=== PATIENT | female | born 1955 | race African-American/Black ===

== ENCOUNTER → 2016-08-02 | Outpatient (CLI) | payer BC ==
[2014-09-26 11:30] VITALS: BP 146/83
--- NOTE | 2016-08-02 09:23 | RAD ---
DATE: 08/02/2016 EXAM: DIGITAL SCREEN BILAT W/CAD HISTORY: Screening study. COMPARISON: 02/24/2014 This study was interpreted with the benefit of Computerized Aided Detection (CAD). FINDINGS: Digital MLO and CC mammograms of both breasts were obtained. An additional exaggerated craniocaudal digital mammogram of the left breast was obtained. Comparison study is dated 02/24/2014. The breast parenchyma is heterogeneously dense which can obscure a lesion on mammography (breast density code C). No spiculated mass is seen. Benign-appearing calcifications are seen scattered throughout both breasts. Within the upper outer quadrant of the left breast a group of calcifications is seen which appears increased in size and number since the previous examination. Further evaluation with spot compression magnification CC and true lateral views is recommended. IMPRESSION: A group of calcifications is seen within the upper quadrant left breast which appears increased since the previous examination. Further evaluation with spot compression magnification CC and true lateral views is recommended. BI-RADS CATEGORY: 0 INCOMPLETE: NEEDS ADDITIONAL IMAGING EVALUATION AND/OR PRIOR MAMMOGRAMS FOR COMPARISON. RECOMMENDED FOLLOW-UP: ADD ADDITIONAL IMAGING Mammography is a sensitive method for finding small breast cancers, but it does not detect them all and is not a substitute for careful clinical examination. A negative mammogram does not negate a clinically suspicious finding and should not result in delay in biopsying a clinically suspicious abnormality. "Our facility is accredited by the [employer] Mammography Program."
== END | disposition home or self-care (01) ==
LOC: MAMMO 08:16
PROVIDERS: ATTEND Family Medicine
DX: Z12.31 Encounter for screening mammogram for malignant neoplasm of breast (principal)
CPT/HCPCS: G0202; 77067

== ENCOUNTER → 2016-08-08 | Outpatient (CLI) | payer BC ==
[2014-09-26 11:30] VITALS: BP 146/83
[~2016-08-08] MED LIST: AMLO1CAP10 PO; CLON0.2T PO; HYDR12.53 PO; NAPR220T70 PO
--- NOTE | 2016-08-08 14:06 | RAD ---
DATE: 08/08/2016 EXAM: DIGITAL DIAGNOSTIC LT HISTORY: Microcalcifications, back COMPARISON: 08/02/2016 This study was interpreted with the benefit of Computerized Aided Detection (CAD ). FINDINGS: Breast Density: HETERO The breast parenchyma Is heterogeneously dense, which could reduce sensitivity of mammography. Breast parenchyma level C. Multiple amorphous grouped microcalcifications identified in the left upper outer quadrant. IMPRESSION: Suspicious microcalcifications in the left upper outer quadrant. Recommend stereotactic biopsy. BI-RADS CATEGORY: 4 SUSPICIOUS ABNORMALITY-BIOPSY SHOULD BE CONSIDERED RECOMMENDED FOLLOW-UP: Stereotactic guided biopsy PQRS compliance statement: Patient information was entered into a reminder system with a target due date immediate recall for the next mammogram. Mammography is a sensitive method for finding small breast cancers, but it does not detect them all and is not a substitute for careful clinical examination. A negative mammogram does not negate a clinically suspicious finding and should not result in delay in biopsying a clinically suspicious abnormality. MTDD
== END | disposition home or self-care (01) ==
LOC: MAMMO 12:07
PROVIDERS: ATTEND Family Medicine
DX: R92.8 Other abnormal and inconclusive findings on diagnostic imaging of breast (principal)
CPT/HCPCS: G0206; 77065

== ENCOUNTER → 2016-08-09 | Outpatient (CLI) | payer BC ==
[~2016-08-09] VITALS: Ht 162.6 cm; Wt 69.9 kg
[~2016-08-09] MED LIST changes: +LIDOCAINE 1% / SOD BICARB 8.4% 20 ML VIAL. IJ ONE; +LIDOCAINE 2%/EPI 1:100,000 20 ML VIAL. IJ ONE
[2016-08-09 07:51] VITALS: BP 109/66
--- NOTE | 2016-08-10 14:53 | PATHOLOGY ---
PATHOLOGY REPORT * * * * * * * * FINAL DIAGNOSIS: Breast "left breast biopsy": - LOBULAR CARCINOMA IN SITU THE LARGEST AREA MEASURING 0.2 CM IN GREATEST DIMENSION. - Fibrocystic changes with numerous microcalcifications. - See comment. COMMENT: This is case is also reviewed by Dr. Fernando Beck. REPORT ELECTRONICALLY SIGNED BY: Arturo Bobo M.D. DATE/TIME: 08/10/2016 14:51 * * * * * * * * GROSS PATHOLOGY: Received in formalin labeled "Faith Ferreira, left breast," entirely within a plastic cassette containing multiple cores are multiple fragments of yellow-navarro fibrofatty tissue measuring 3.2 x 3.0 x 0.8 cm in aggregate dimensions. The tissue in the cassette is transferred to cassettes A1 through A3. The cold ischemic time is 38 minutes and total formalin fixation time is 14 hours and 36 minutes. (SHA; 08/09/16) INITIAL CPT CODE(S): A; 04707 Professional services performed [place] [address] Technical services performed by [facility] at [address] [place] [address] [address] [address]. SPECIMEN(S) RECEIVED: A.Left breast biopsy CLINICAL HISTORY: Calcifications PATIENT: FAITH FERREIRA /AGE: 1201/24/1955 (Age: 61) PATIENT #: [id number] ALT CASE #: SPECIMEN COLLECTION DATE: 08/09/2016 SPECIMEN RECEIVED DATE: 08/09/2016 [facility] - [address] [place] [address] - PHONE: [phone] * * * END OF REPORT * * *
--- NOTE | 2016-08-11 14:49 | RAD ---
Stereotactic left breast biopsy, 08/09/2016: History: Microcalcifications The previous studies demonstrated multiple faint microcalcifications in the left breast, most numerous in the upper outer quadrant. These are spread out over a fairly wide area. They were thought to be progressing. Under local anesthesia, aseptic conditions and stereotactic guidance the [employer] biopsy instrument was passed into this region via a superior approach. Multiple 19-gauge vacuum-assisted core samples were obtained. Several microcalcifications are present in the specimens. A biopsy marker was then deposited at the biopsy site. The biopsy instrument was then removed and hemostasis was obtained. Two-view postprocedural digital mammograms were then obtained on a separate mammographic unit. They show that the biopsy marker has migrated several centimeters superiorly. The patient tolerated the procedure well and left the department in good condition. Note: The subsequent pathology report indicated the presence of fibrocystic change with microcalcifications, as well as lobular carcinoma in situ. Excisional biopsy following needle localization is suggested for further evaluation. Surgical consultation is suggested. Note: The report was called to personnel in Dr. Lehman's office at 2:40 PM on 08/11/2016. They will relay this report to Dr. Lehman.
== END ==
LOC: MAMMO 08:00
PROVIDERS: ATTEND Family Medicine
DX: R92.8 Other abnormal and inconclusive findings on diagnostic imaging of breast (principal)
CPT/HCPCS: 19085; 77022; C1713; G0206; J3490; 88305; 77065

== ENCOUNTER 2016-08-30 07:31 | Day surgery (SDC) | payer BC ==
[~2016-08-30 07:31] MED LIST changes: +GLUC1TAB45 PO; +HYDROmorphone 2 MG/ML VIAL IV PRN; +IV RINGERS,LACTATED 1000ML 1,000 ML IV SCH; -LIDOCAINE 1% / SOD BICARB 8.4% 20 ML VIAL. IJ ONE; +LIDOCAINE 1% 1 ML SYRINGE. ID PRN; -LIDOCAINE 2%/EPI 1:100,000 20 ML VIAL. IJ ONE; +MORPHINE SULFATE 2 MG/ML DISP.SYRIN. IV PRN; +ONDANSETRON PF 4 MG/2 ML VIAL. IV PRN; +PROCHLORPERAZINE 10 MG/2 ML VIAL. IV PRN; +fentaNYL PF VIAL 100 MCG/2 ML VIAL IV PRN
[2016-08-30] MEDS ORDERED: LIDOCAINE 1% / SOD BICARB 8.4% 20 ML VIAL. IJ ONE (08:15)
[2016-08-30] MEDS ORDERED: METHYLENE BLUE 1% 1 ML VIAL. IJ ONE (08:15)
[2016-08-30 08:35] LABS: BASO # 0.1 x10^3/uL (0.0-0.2); BASO % 1 % (0-3); EOS % 2 % (0-3); HEMATOCRIT 37.6 % (36.0-47.0); HEMOGLOBIN 12.6 g/dL (12.0-15.5); LYMPH % 21 % (24-48); MEAN CORPUSCULAR HEMOGLOBIN 28 pg (25-35); MEAN CORPUSCULAR HGB CONC 34 g/dL (31-37); MEAN CORPUSCULAR VOLUME 84 fL (79-100); MONO % 5 % (0-9); NEUT % 71 % (31-73); PLATELET COUNT 168 x10^3/uL (140-400); RED CELL DISTRIBUTION WIDTH 15.1 % (11.5-14.5); WHITE BLOOD COUNT 9.4 x10^3/uL (4.0-11.0)
[2016-08-30 08:43] LABS: CALCIUM 9.3 mg/dL (8.5-10.1); CREATININE 1.4 mg/dL (0.6-1.0); GFR 46.1; POTASSIUM 4.1 mmol/L (3.5-5.1)
[2016-08-30 08:49] LABS: ALBUMIN 3.8 g/dL (3.4-5.0); ALBUMIN/GLOBULIN RATIO 0.8 (1.0-1.7); TOTAL BILIRUBIN 0.3 mg/dL (0.2-1.0); TOTAL PROTEIN 8.8 g/dL (6.4-8.2)
[2016-08-30 08:55] LABS: INR 1.1 (0.8-1.1); PROTHROMBIN TIME PATIENT 13.1 SEC (11.7-14.0)
[2016-08-30] MEDS ORDERED: DESFLURANE 61 TO 120 MINUTES IH ONE (08:57)
[2016-08-30] MEDS ORDERED: ONDANSETRON PF 4 MG/2 ML VIAL. ONE (08:58)
[2016-08-30] MEDS ORDERED: PROPOFOL 20 ML IV ONE (08:58)
[2016-08-30] MEDS ORDERED: MIDAZOLAM HCL/PF 2 MG/2 ML VIAL. ONE (08:58)
[2016-08-30] MEDS ORDERED: DEXAMETHASONE SOD PHOS 20 MG/5 ML VIAL. ONE (08:58)
[2016-08-30] MEDS ORDERED: LIDOCAINE 2% PF Vial for OR 5 ML VIAL. ONE (08:58)
[2016-08-30] MEDS ORDERED: fentaNYL PF VIAL 100 MCG/2 ML VIAL ONE ×2 (08:58→11:47)
--- NOTE | 2016-08-30 09:58 | RAD ---
Left breast needle localization, 08/30/2016: History: Microcalcifications, lobular carcinoma in situ Previous studies have demonstrated widespread microcalcifications in the left breast, most prominent in the upper outer quadrant. A recent breast biopsy in this region demonstrated lobular carcinoma in situ. The biopsy marker from that biopsy was noted to have migrated superiorly from the biopsy site at the end of that procedure. Under local anesthesia, aseptic conditions and mammographic guidance we targeted the dominant microcalcifications. These were bracketed with 2 modified Kopans retention wires with the final images showing that the grouping of microcalcifications is centered approximate 7 cm deep to the skin surface. We also injected a small amount methylene blue at the level of the tips of these two retention wire as as requested by Dr. Christiansen. We also targeted the previous biopsy clip with a third wire. This is the more medially placed wire. Methylene blue was also injected at the tip of this wire as requested. The final images show that the biopsy marker lies directly adjacent to the distal aspect of this retention wire, approximately 2.5 cm deep to the skin surface. The patient tolerated the procedure well and left the department in good condition.
[2016-08-30] MEDS ORDERED: CLINDAMYCIN 600MG PREMIX 50 ML IV ONE (10:49)
--- NOTE | 2016-08-30 10:52 | PDOC ---
SURGICAL PROGRESS NOTE Subjective No change in dictated H&P. Vital Signs Vital Signs Date Time Temp Pulse Resp B/P (MAP) Pulse Ox O2 Delivery O2 Flow Rate FiO2 08/30/16 08:43 97.4 61 16 118/69 98 Room Air 97.4 Labs Laboratory Tests Test 08/30/16 08:10 White Blood Count 9.4 x10^3/uL (4.0-11.0) Red Blood Count 4.50 x10^6/uL (3.50-5.40) Hemoglobin 12.6 g/dL (12.0-15.5) Hematocrit 37.6 % (36.0-47.0) Mean Corpuscular Volume 84 fL (79-100) Mean Corpuscular Hemoglobin 28 pg (25-35) Mean Corpuscular Hemoglobin Concent 34 g/dL (31-37) Red Cell Distribution Width 15.1 % (11.5-14.5) Platelet Count 168 x10^3/uL (140-400) Neutrophils (%) (Auto) 71 % (31-73) Lymphocytes (%) (Auto) 21 % (24-48) Monocytes (%) (Auto) 5 % (0-9) Eosinophils (%) (Auto) 2 % (0-3) Basophils (%) (Auto) 1 % (0-3) Neutrophils # (Auto) 6.6 x10^3uL (1.8-7.7) Lymphocytes # (Auto) 2.0 x10^3/uL (1.0-4.8) Monocytes # (Auto) 0.5 x10^3/uL (0.0-1.1) Eosinophils # (Auto) 0.2 x10^3/uL (0.0-0.7) Basophils # (Auto) 0.1 x10^3/uL (0.0-0.2) Prothrombin Time 13.1 SEC (11.7-14.0) Prothromb Time International Ratio 1.1 (0.8-1.1) Sodium Level 140 mmol/L (136-145) Potassium Level 4.1 mmol/L (3.5-5.1) Chloride Level 102 mmol/L (98-107) Carbon Dioxide Level 30 mmol/L (21-32) Anion Gap 8 (6-14) Blood Urea Nitrogen 18 mg/dL (7-20) Creatinine 1.4 mg/dL (0.6-1.0) Estimated GFR (Cockcroft-Gault) 46.1 BUN/Creatinine Ratio 13 (6-20) Glucose Level 196 mg/dL (70-99) Calcium Level 9.3 mg/dL (8.5-10.1) Total Bilirubin 0.3 mg/dL (0.2-1.0) Aspartate Amino Transf (AST/SGOT) 16 U/L (15-37) Alanine Aminotransferase (ALT/SGPT) 17 U/L (14-59) Alkaline Phosphatase 93 U/L (46-116) Total Protein 8.8 g/dL (6.4-8.2) Albumin 3.8 g/dL (3.4-5.0) Albumin/Globulin Ratio 0.8 (1.0-1.7) Laboratory Tests Test 08/30/16 08:10 White Blood Count 9.4 x10^3/uL (4.0-11.0) Red Blood Count 4.50 x10^6/uL (3.50-5.40) Hemoglobin 12.6 g/dL (12.0-15.5) Hematocrit 37.6 % (36.0-47.0) Mean Corpuscular Volume 84 fL (79-100) Mean Corpuscular Hemoglobin 28 pg (25-35) Mean Corpuscular Hemoglobin Concent 34 g/dL (31-37) Red Cell Distribution Width 15.1 % (11.5-14.5) Platelet Count 168 x10^3/uL (140-400) Neutrophils (%) (Auto) 71 % (31-73) Lymphocytes (%) (Auto) 21 % (24-48) Monocytes (%) (Auto) 5 % (0-9) Eosinophils (%) (Auto) 2 % (0-3) Basophils (%) (Auto) 1 % (0-3) Neutrophils # (Auto) 6.6 x10^3uL (1.8-7.7) Lymphocytes # (Auto) 2.0 x10^3/uL (1.0-4.8) Monocytes # (Auto) 0.5 x10^3/uL (0.0-1.1) Eosinophils # (Auto) 0.2 x10^3/uL (0.0-0.7) Basophils # (Auto) 0.1 x10^3/uL (0.0-0.2) Prothrombin Time 13.1 SEC (11.7-14.0) Prothromb Time International Ratio 1.1 (0.8-1.1) Sodium Level 140 mmol/L (136-145) Potassium Level 4.1 mmol/L (3.5-5.1) Chloride Level 102 mmol/L (98-107) Carbon Dioxide Level 30 mmol/L (21-32) Anion Gap 8 (6-14) Blood Urea Nitrogen 18 mg/dL (7-20) Creatinine 1.4 mg/dL (0.6-1.0) Estimated GFR (Cockcroft-Gault) 46.1 BUN/Creatinine Ratio 13 (6-20) Glucose Level 196 mg/dL (70-99) Calcium Level 9.3 mg/dL (8.5-10.1) Total Bilirubin 0.3 mg/dL (0.2-1.0) Aspartate Amino Transf (AST/SGOT) 16 U/L (15-37) Alanine Aminotransferase (ALT/SGPT) 17 U/L (14-59) Alkaline Phosphatase 93 U/L (46-116) Total Protein 8.8 g/dL (6.4-8.2) Albumin 3.8 g/dL (3.4-5.0) Albumin/Globulin Ratio 0.8 (1.0-1.7) KEON CADENA MD Aug 30, 2016 10:52
--- NOTE | 2016-08-30 10:55 | PDOC ---
SURGICAL PROGRESS NOTE Subjective Op Note: Surgeon..........................................Kuldip Pre op diag.....................................Lobular carcinoma insitu. Post op diag...................................same Anesthesia.....................................general Procedure......................................partial mastectomy Drains...........................................large Matthieu drain Fluids............................................see anesthesia sheet Blood loss.....................................15cc Condition.......................................satisfactory Vital Signs Vital Signs Date Time Temp Pulse Resp B/P (MAP) Pulse Ox O2 Delivery O2 Flow Rate FiO2 08/30/16 08:43 97.4 61 16 118/69 98 Room Air 97.4 Labs Laboratory Tests Test 08/30/16 08:10 White Blood Count 9.4 x10^3/uL (4.0-11.0) Red Blood Count 4.50 x10^6/uL (3.50-5.40) Hemoglobin 12.6 g/dL (12.0-15.5) Hematocrit 37.6 % (36.0-47.0) Mean Corpuscular Volume 84 fL (79-100) Mean Corpuscular Hemoglobin 28 pg (25-35) Mean Corpuscular Hemoglobin Concent 34 g/dL (31-37) Red Cell Distribution Width 15.1 % (11.5-14.5) Platelet Count 168 x10^3/uL (140-400) Neutrophils (%) (Auto) 71 % (31-73) Lymphocytes (%) (Auto) 21 % (24-48) Monocytes (%) (Auto) 5 % (0-9) Eosinophils (%) (Auto) 2 % (0-3) Basophils (%) (Auto) 1 % (0-3) Neutrophils # (Auto) 6.6 x10^3uL (1.8-7.7) Lymphocytes # (Auto) 2.0 x10^3/uL (1.0-4.8) Monocytes # (Auto) 0.5 x10^3/uL (0.0-1.1) Eosinophils # (Auto) 0.2 x10^3/uL (0.0-0.7) Basophils # (Auto) 0.1 x10^3/uL (0.0-0.2) Prothrombin Time 13.1 SEC (11.7-14.0) Prothromb Time International Ratio 1.1 (0.8-1.1) Sodium Level 140 mmol/L (136-145) Potassium Level 4.1 mmol/L (3.5-5.1) Chloride Level 102 mmol/L (98-107) Carbon Dioxide Level 30 mmol/L (21-32) Anion Gap 8 (6-14) Blood Urea Nitrogen 18 mg/dL (7-20) Creatinine 1.4 mg/dL (0.6-1.0) Estimated GFR (Cockcroft-Gault) 46.1 BUN/Creatinine Ratio 13 (6-20) Glucose Level 196 mg/dL (70-99) Calcium Level 9.3 mg/dL (8.5-10.1) Total Bilirubin 0.3 mg/dL (0.2-1.0) Aspartate Amino Transf (AST/SGOT) 16 U/L (15-37) Alanine Aminotransferase (ALT/SGPT) 17 U/L (14-59) Alkaline Phosphatase 93 U/L (46-116) Total Protein 8.8 g/dL (6.4-8.2) Albumin 3.8 g/dL (3.4-5.0) Albumin/Globulin Ratio 0.8 (1.0-1.7) Laboratory Tests Test 08/30/16 08:10 White Blood Count 9.4 x10^3/uL (4.0-11.0) Red Blood Count 4.50 x10^6/uL (3.50-5.40) Hemoglobin 12.6 g/dL (12.0-15.5) Hematocrit 37.6 % (36.0-47.0) Mean Corpuscular Volume 84 fL (79-100) Mean Corpuscular Hemoglobin 28 pg (25-35) Mean Corpuscular Hemoglobin Concent 34 g/dL (31-37) Red Cell Distribution Width 15.1 % (11.5-14.5) Platelet Count 168 x10^3/uL (140-400) Neutrophils (%) (Auto) 71 % (31-73) Lymphocytes (%) (Auto) 21 % (24-48) Monocytes (%) (Auto) 5 % (0-9) Eosinophils (%) (Auto) 2 % (0-3) Basophils (%) (Auto) 1 % (0-3) Neutrophils # (Auto) 6.6 x10^3uL (1.8-7.7) Lymphocytes # (Auto) 2.0 x10^3/uL (1.0-4.8) Monocytes # (Auto) 0.5 x10^3/uL (0.0-1.1) Eosinophils # (Auto) 0.2 x10^3/uL (0.0-0.7) Basophils # (Auto) 0.1 x10^3/uL (0.0-0.2) Prothrombin Time 13.1 SEC (11.7-14.0) Prothromb Time International Ratio 1.1 (0.8-1.1) Sodium Level 140 mmol/L (136-145) Potassium Level 4.1 mmol/L (3.5-5.1) Chloride Level 102 mmol/L (98-107) Carbon Dioxide Level 30 mmol/L (21-32) Anion Gap 8 (6-14) Blood Urea Nitrogen 18 mg/dL (7-20) Creatinine 1.4 mg/dL (0.6-1.0) Estimated GFR (Cockcroft-Gault) 46.1 BUN/Creatinine Ratio 13 (6-20) Glucose Level 196 mg/dL (70-99) Calcium Level 9.3 mg/dL (8.5-10.1) Total Bilirubin 0.3 mg/dL (0.2-1.0) Aspartate Amino Transf (AST/SGOT) 16 U/L (15-37) Alanine Aminotransferase (ALT/SGPT) 17 U/L (14-59) Alkaline Phosphatase 93 U/L (46-116) Total Protein 8.8 g/dL (6.4-8.2) Albumin 3.8 g/dL (3.4-5.0) Albumin/Globulin Ratio 0.8 (1.0-1.7) KEON CADENA MD Aug 30, 2016 10:55
[2016-08-30] MEDS ORDERED: PHENYLEPHRINE in 0.9% NACL PF 1 MG/10 ML DISP.SYRIN. IV ONE (11:07)
[2016-08-30] MEDS ORDERED: PHENYLEPHRINE 10 MG/ML VIAL. ONE (11:09)
[2016-08-30] MEDS ORDERED: ePHEDrine PF IN SALINE 50 MG/5 ML DISP.SYRIN IV ONE ×2 (11:33→12:10)
--- NOTE | 2016-08-30 12:02 | RAD ---
Left breast specimen mammogram #1, 08/30/2016: History: Breast cancer A digital mammogram of a surgical specimen from the left breast was obtained. There is a modified Kopan's retention wire in the specimen as well as the targeted biopsy marker. The marker lies at the D6-7 level in the specimen container. There are faint microcalcifications related to dense breast tissue at the I5 level in the specimen container.
--- NOTE | 2016-08-30 12:34 | RAD ---
Left breast specimen mammogram #2, 08/30/2016: A single digital mammogram of a second surgical specimen from the patient's left breast was performed. It demonstrates 2 modified Kopans retention wires within the specimen. There are numerous microcalcifications within the specimen including a prominent grouping extending to the margin of the specimen near the L13-14 level in the specimen container.
[2016-08-30] MEDS ORDERED: HYDR-2758 PO (13:14)
[2016-08-30] MEDS ORDERED: HYDROcodone/APAP 5/325MG 1 TAB TABLET PO ONE (13:15)
[2016-08-30 13:45] VITALS: BP 119/70
--- NOTE | 2016-09-04 08:11 | PATHOLOGY ---
PATHOLOGY REPORT * * * * * * * * FINAL DIAGNOSIS: A. Breast, "left breast," previous biopsy site, segmental resection: - RESIDUAL FOCUS OF LOBULAR CARCINOMA IN SITU, MULTIFOCAL MEASURING 0.2 CM IN GREATEST DIMENSION, 0.2 CM FROM THE INKED SURGICAL RESECTION MARGIN. - Previous biopsy site changes, microcalcifications, and fibrocystic changes. B. Breast, "left breast tissue microcalcifications": - MULTIFOCAL LOBULAR CARCINOMA IN SITU, THE LARGEST AREA MEASURES 0.2 CM IN GREATEST DIMENSION COMPLETELY EXCISED. - ONE FOCUS IS 0.1 CM FROM THE BLACK-INKED SURGICAL RESECTION MARGIN. - Fibrocystic changes with microcalcifications. - See comment. COMMENT: Immunoperoxidase stains were performed and reveal the following results: E-cadherin (A3): negative in LCIS focus E-cadherin (A4): negative in LCIS focus E-cadherin (B4): negative in LCIS focus E-cadherin (B5): negative in LCIS focus (SHA:r; 09/01/2016) REPORT ELECTRONICALLY SIGNED BY: Arturo Bobo M.D. DATE/TIME: 09/04/2016 08:10 * * * * * * * * GROSS PATHOLOGY: A. The specimen is received in formalin labeled "Wilbert Jhon, previous biopsy site L breast". Received is a 12 g unoriented segment of bright yellow lobulated tissue measuring 6.3 x 3.1 x 1.1 cm in greatest dimensions with a localization wire present. The surgical margin is inked. Sectioning reveals a small focus of white-deluna fibrous tissue, with a metallic clip present, measuring 0.5 x 0.5 x 0.4 cm in greatest dimensions, which grossly approaches the inked margin. The remainder the specimen is comprised of yellow-deluna, lobulated to white-deluna, fibrous cut surfaces throughout, with the fibrous tissue encompassing approximately 25% of the specimen. The specimen is submitted representatively as follows: A1 margins from longest axis A2 entire focus fibrous tissue are metallic clip was located A3-A6 additional patient services representative sections of specimen. The cold ischemic time is 17 minutes. The total formalin fixation time is 34 hours and 3 minutes. B. The specimen is received in formalin labeled "Wilbert Jhon, L breast tissue". Received is a 28 g segment of bright yellow lobulated tissue measuring 8.3 x 5.8 x 1.0 cm in greatest dimensions with 2 localization wires present. The surgical margin is inked. Sectioning reveals yellow-deluna, lobulated to white-deluna, fibrous cut surfaces throughout with no grossly distinct previous biopsy sites. Each wire ended in a patch of white-deluna fibrous tissue, which has a slight amount of blue dye. No distinct nodules or lesions are noted grossly. The fibrous tissue encompasses approximately 30% of the specimen. The specimen is submitted representatively as follows: B1 margins from longest axis B2 each focus where the ends of each wire were located B3-B6 additional patient services representative sections of specimen. The cold ischemic time is 30 minutes. The total followed fixation time is 33 hours and 40 minutes. (CAA; 08/31/2016) INITIAL CPT CODE(S): A; 44455, 89832 B; 11394, 19725 Professional services performed [place] [facility] [place] [address] Technical services performed by [facility] at [address] [place] [address] [address], [place] [address]. SPECIMEN(S) RECEIVED: A.Previous biopsy site, left breast B.Left breast tissue microscopic calcifications CLINICAL HISTORY: None provided PATIENT: IWLBERT LEIJA /AGE: 1201/24/1955 (Age: 61) PATIENT #: [id number] ALT CASE #: SPECIMEN COLLECTION DATE: 08/30/2016 SPECIMEN RECEIVED DATE: 08/30/2016 [facility] - [address] [place] [address] - PHONE: [phone] * * * END OF REPORT * * *
== END 2016-08-30 14:09 | disposition home or self-care (01) ==
LOC: MAMMO 07:31
PROVIDERS: ATTEND Specialist
DX: C50.912 Malignant neoplasm of unspecified site of left female breast (principal); R92.0 Mammographic microcalcification found on diagnostic imaging of breast; E78.00 Pure hypercholesterolemia, unspecified; I10 Essential (primary) hypertension; M19.90 Unspecified osteoarthritis, unspecified site; Z79.01 Long term (current) use of anticoagulants; Z88.0 Allergy status to penicillin; Z87.39 Personal history of other diseases of the musculoskeletal system and connective tissue; Z72.89 Other problems related to lifestyle
CPT/HCPCS: 19281; 19301; 36415; 76098; 80053; 85027; 85610; J1100; J2001; J2250; J2370; J2405; J2704; J3010; J3490; J7120; Q9968

== ENCOUNTER → 2017-09-03 | Outpatient (CLI) | payer BC | END | disposition home or self-care (01) | LOC: MAMMO 10:54 | DX: R92.8 Other abnormal and inconclusive findings on diagnostic imaging of breast (principal); I10 Essential (primary) hypertension; E78.00 Pure hypercholesterolemia, unspecified | CPT/HCPCS: 77066; G0279 ==

== ENCOUNTER → 2018-02-05 | Outpatient (CLI) | payer BC ==
[~2018-02-05] MED LIST changes: +HYDR-2761 PO; -HYDR12.53 PO; +HYDR12.575 PO; -HYDROmorphone 2 MG/ML VIAL IV PRN; -IV RINGERS,LACTATED 1000ML 1,000 ML IV SCH; -LIDOCAINE 1% 1 ML SYRINGE. ID PRN; -MORPHINE SULFATE 2 MG/ML DISP.SYRIN. IV PRN; -ONDANSETRON PF 4 MG/2 ML VIAL. IV PRN; -PROCHLORPERAZINE 10 MG/2 ML VIAL. IV PRN; -fentaNYL PF VIAL 100 MCG/2 ML VIAL IV PRN
--- NOTE | 2018-02-08 09:18 | RAD ---
DATE: 02/05/2018 3:30 PM EXAM: MAMMO KARINA DIAG LT HISTORY: short-term imaging followup of a probably benign finding in the left breast. COMPARISON: 09/03/2017, Left CC and MLO views of the breasts were performed. Left breast tomosynthesis was performed in CC and MLO projections. This study was interpreted with the benefit of Computerized Aided Detection (CAD ). Breast Density: The breast parenchyma is heterogeneously dense, which could reduce sensitivity of mammography. Breast parenchyma level C. FINDINGS: Posttherapeutic changes of prior lumpectomy are again seen. The previously seen left breast calcifications are grossly stable in appearance. Given history of known lobular carcinoma in situ, continued follow-up is suggested despite stable appearance. IMPRESSION: Left breast indeterminate microcalcifications, findings for which short interval follow-up imaging is advised. BI-RADS CATEGORY: 3 PROBABLY BENIGN FINDING(S)-SHORT INTERVAL FOLLOW-UP SUGGESTED RECOMMENDED FOLLOW-UP: 6M 6 MONTH FOLLOW-UP follow-up mammography is recommended in 6 months at which time the patient is due for contralateral screening examination as well. At this time full field ML and magnification views of the left breast are recommended as well as 3-D CC and MLO views. PQRS compliance statement: Patient information was entered into a reminder system with a target due date August 04, 2017 for the next mammogram. Mammography is a sensitive method for finding small breast cancers, but it does not detect them all and is not a substitute for careful clinical examination. A negative mammogram does not negate a clinically suspicious finding and should not result in delay in biopsying a clinically suspicious abnormality. "Our facility is accredited by the [employer] Mammography Program." MTDD
== END | disposition home or self-care (01) ==
LOC: MAMMO 13:13
PROVIDERS: ATTEND Nurse Practitioner Adult Health
DX: D05.02 Lobular carcinoma in situ of left breast (principal)
CPT/HCPCS: 77065; G0279; 77061

== ENCOUNTER → 2018-07-29 | Outpatient (CLI) | payer BC, MEDICARE ==
--- NOTE | 2018-07-29 11:35 | RAD ---
DATE: 07/29/2018 EXAM: MAMMO KARINA DIAG BILAT HISTORY: Routine screening on right, six-month follow-up on left COMPARISON: 02/05/2018, 09/03/2017 This study was interpreted with the benefit of Computerized Aided Detection (CAD). Breast Density: HETERO The breast parenchyma is heterogenously dense, which could reduce sensitivity of mammography. Breast parenchyma level C. FINDINGS: 2-D and 3-D tomosynthesis imaging was performed in CC and MLO projections. No new or enlarging breast densities are seen. Faint left breast microcalcifications are unchanged. There is a coarse benign type calcification anteriorly in the right breast. Lymph node type densities projected over the axillary regions are unchanged. IMPRESSION: Stable left breast microcalcifications. Follow-up left mammography in 6 months and bilateral mammography at one year is suggested. BI-RADS CATEGORY: 3 PROBABLY BENIGN FINDING(S)-SHORT INTERVAL FOLLOW-UP SUGGESTED RECOMMENDED FOLLOW-UP: 6M 6 MONTH FOLLOW-UP PQRS compliance statement: Patient information was entered into a reminder system with a target due date for the next mammogram. Mammography is a sensitive method for finding small breast cancers, but it does not detect them all and is not a substitute for careful clinical examination. A negative mammogram does not negate a clinically suspicious finding and should not result in delay in biopsying a clinically suspicious abnormality. "Our facility is accredited by the [employer] Mammography Program."
== END | disposition home or self-care (01) ==
LOC: MAMMO 10:07
PROVIDERS: ATTEND Internal Medicine Hematology & Oncology
DX: R92.1 Mammographic calcification found on diagnostic imaging of breast (principal); R92.0 Mammographic microcalcification found on diagnostic imaging of breast; D05.02 Lobular carcinoma in situ of left breast
CPT/HCPCS: 77066; G0279; 77062

== ENCOUNTER → 2019-01-28 | Outpatient (CLI) | payer MEDICARE, BC ==
[~2019-01-28] MED LIST changes: -AMLO1CAP10 PO; +AMLO1CAP11 PO
--- NOTE | 2019-01-29 15:35 | RAD ---
DATE: 01/28/2019 EXAM: MAMMO KARINA KHLOE AVALOS HISTORY: Abnormal mammogram COMPARISON: 11/15/2012 08/02/2016 09/03/2017, 07/29/2018 mammographic exams This study was interpreted with the benefit of Computerized Aided Detection (CAD). Breast Density: HETERO The breast parenchyma is heterogenously dense, which could reduce sensitivity of mammography. Breast parenchyma level C. FINDINGS: Calcifications involving the left upper-outer breast are stable. No suspicious change. IMPRESSION: Stable calcifications BI-RADS CATEGORY: 3 PROBABLY BENIGN FINDING(S)-SHORT INTERVAL FOLLOW-UP SUGGESTED RECOMMENDED FOLLOW-UP: 6M 6 MONTH FOLLOW-UP. Follow-up of left breast calcifications at the time of annual evaluation is recommended to assess stability. PQRS compliance statement: Patient information was entered into a reminder system with a target due date for the next mammogram. Mammography is a sensitive method for finding small breast cancers, but it does not detect them all and is not a substitute for careful clinical examination. A negative mammogram does not negate a clinically suspicious finding and should not result in delay in biopsying a clinically suspicious abnormality. "Our facility is accredited by the [employer] Mammography Program."
== END | disposition home or self-care (01) ==
LOC: MAMMO 12:49
PROVIDERS: ATTEND Internal Medicine Hematology & Oncology
DX: N64.89 Other specified disorders of breast (principal); D05.02 Lobular carcinoma in situ of left breast
CPT/HCPCS: 77065; G0279; 77061

== ENCOUNTER → 2019-08-21 | Outpatient (CLI) | payer MEDICARE, BC ==
--- NOTE | 2019-08-21 13:48 | RAD ---
EXAMINATION: DIGITAL DIAGNOSTIC BILATERAL History: Reason: 6 month follow up, left breast ca / Spl. Instructions: / History: Comparison: 07/29/2018, 09/03/2017 and left unilateral ultrasound: 19. Technique: Bilateral digital diagnostic mammogram views were obtained. CAD was utilized. 3-D tomosynthesis images were acquired. Findings: Breast Tissue Density C : The breasts are heterogeneously dense, which may obscure small masses. There are no dominant masses, suspicious microcalcifications, or architectural distortion. Left upper breast secretions are again seen without appreciable change. No suspicious features in the interval. IMPRESSION: No mammographic evidence of malignancy. Recommend routine screening. BI-RADS category 1: Negative. The images were reviewed with computer aided detection. Patient information is entered into the reminder system with a target due date for the next screening mammogram. Mammography is the most sensitive method for finding small breast cancers, but it does not detect them all and is not a substitute for careful clinical examination. A negative mammogram does not negate a clinically suspicious finding and should not result in delay in biopsying a clinically suspicious abnormality. "Our facility is accredited by the [employer] Mammography [employer]." Electronically signed by: Beltran Lenz MD (08/21/2019 1:46 PM) [id number]
== END | disposition home or self-care (01) ==
LOC: MAMMO 12:19
PROVIDERS: ATTEND Internal Medicine Hematology & Oncology
DX: R92.2 Inconclusive mammogram (principal)
CPT/HCPCS: 77066

== ENCOUNTER → 2019-09-22 | Outpatient (CLI) | payer MEDICARE, BC ==
--- NOTE | 2019-09-22 13:48 | KCIC ---
Bone densitometry Clinical history: 64-year-old female, screening for osteoporosis, postmenopausal. Lumbar spine: L1-L4. Dual energy x-ray absorptiometry of the lumbar spine, reveals a bone mineral density of 0.84 gm/cm2. It is 1.5 standard deviations below the expected young adult normal value (T-score = -1.5 ). At this bone density level, fracture risk is increased. Hip: Left. Dual energy x-ray absorptiometry of the left femoral neck reveals a bone mineral density of 0.829 gm/cm2. It is 0.9 standard deviations below the expected young adult normal value (T-score = -0.9 ). At this bone density level, fracture risk is normal. Impression: 1. Decreased bone mineral density of the lumbar spine. Note: Definitions established by the World Health Organization: 1. Normal: T-score is -1.0 or above. 2. Osteopenia: T-score is between -1.0 and -2.5. 3. Osteoporosis: T-score is -2.5 or below. Electronically signed by: Gustavo Ribeiro MD (09/22/2019 1:45 PM) [id number]
== END | disposition home or self-care (01) ==
LOC: KCIC DEXA 09:48
PROVIDERS: ATTEND Pediatrics
DX: Z13.820 Encounter for screening for osteoporosis (principal); N95.8 Other specified menopausal and perimenopausal disorders
CPT/HCPCS: 77080

== ENCOUNTER → 2020-08-30 | Outpatient (CLI) | payer MEDICARE, BC ==
--- NOTE | 2020-08-30 10:18 | RAD ---
EXAM: Bilateral digital diagnostic mammogram with tomosynthesis. HISTORY: 65-year-old female with a history of left breast cancer, status post left breast conservatio n therapy, presents for bilateral mammography. TECHNIQUE: Full-field digital craniocaudal and mediolateral oblique 2D and 3D tomosynthesis images of both breasts are obtained for evaluation. Computer aided detection was applied. COMPARISON: 08/21/2019, 01/28/2019, 02/05/2018, 09/03/2017, 08/30/2016 BREAST PARENCHYMAL DENSITY: Level C - Heterogeneously dense. FINDINGS: There is no new suspicious mass, microcalcification or region of architectural distortion. There are stable findings consistent with left breast conservation therapy. There are stable clustere d microcalcifications and there is stable nodular asymmetry within the posterior upper outer quadrant of the left breast. The greater than two-year course of stability favors benignity. IMPRESSION: BI-RADS Category 2: Benign finding(s). RECOMMENDATION: Annual mammography is recommended. If your mammogram demonstrates that you have dense breast tissue, which could hide abnormalities, and if you have other risk factors for breast cancer that have been identified, you might benefit from s upplemental screening tests that may be suggested by your ordering physician. Dense breast tissue, i n and of itself, is a relatively common condition. This information is not provided to cause undue c oncern, but rather to raise your awareness and to promote discussion with your physician regarding th e presence of other risk factors, in addition to dense breast tissue. A report of your mammography re sults will be sent to you and your physician. You should contact your physician if you have any ques tions or concerns regarding this report. Mammography is a sensitive method for finding small breast cancers, but it does not detect them all a nd is not a substitute for careful clinical examination. A negative mammogram does not negate a clin ically suspicious finding and should not result in delay in biopsying a clinically suspicious abnorma lity. PQRS compliance statement - Patient information was entered into a reminder system with a target due date for the next mammogram. "Our facility is accredited by the [employer] Mammography [employer]." Electronically signed by: Shira Aguirre MD (08/30/2020 10:16 AM) [id number]
== END ==
LOC: MAMMO 09:56
PROVIDERS: ATTEND Internal Medicine Hematology & Oncology
DX: N63.21 Unspecified lump in the left breast, upper outer quadrant (principal); R92.1 Mammographic calcification found on diagnostic imaging of breast; D05.02 Lobular carcinoma in situ of left breast
CPT/HCPCS: 77066; G0279; 77062